=== PATIENT | male | born 1985 | race Caucasian/White ===

== ENCOUNTER 2022-10-14 15:21 | Emergency (ER) | payer SELFPAY ==
[~2022-10-14] VITALS: Ht 172.7 cm; Wt 89.0 kg
[2022-10-14 15:33] VITALS: O2SAT 100
[2022-10-14] MEDS ORDERED: KETOROLAC 60MG/2ML VIAL IM ONE (16:00)
[2022-10-14] MEDS ORDERED: TETANUS, DIPHTHERIA, PERTUSSIS VAC/PF 0.5ML (>10YR OLD) IM ONE (16:00)
[2022-10-14 18:50] VITALS: BP 129/78; PULSE 87; RESP 18; TEMP 97.9
== END 2022-10-14 18:51 | disposition home or self-care (01) ==
LOC: ER 15:36
DX: S02.2XXA Fracture of nasal bones, initial encounter for closed fracture (principal); Y08.89XA Assault by other specified means, initial encounter; Y93.89 Activity, other specified; Y92.89 Other specified places as the place of occurrence of the external cause; Y99.8 Other external cause status
CPT/HCPCS: 70450; 70486; 72125; 90715; 90471; 96372; 99285; J1885; Z7610

== ENCOUNTER 2022-10-16 14:50 | Emergency (ER) | payer SELFPAY ==
[2022-10-16 15:03] VITALS: PULSE 70; RESP 16
== END 2022-10-16 15:56 | disposition left against medical advice (07) ==
LOC: ER 14:50
DX: R51.9 Headache, unspecified (principal); Z53.21 Procedure and treatment not carried out due to patient leaving prior to being seen by health care provider
CPT/HCPCS: 99281